=== PATIENT | female | born 1945 | race Caucasian/White ===

== ENCOUNTER 2021-12-12 06:00 | Day surgery (SDC) | payer OTHER ==
[2021-12-07 16:04] VITALS: BMI 27.3
[2021-12-12 08:16] LABS: PH,URINE 6.5 (5.0-8.0); URINE APPEARANCE CLEAR; URINE BILIRUBIN NEGATIVE (NEGATIVE); URINE COLOR YELLOW; URINE GLUCOSE (UA) NEGATIVE (NEGATIVE); URINE KETONE NEGATIVE (NEGATIVE); URINE LEUK ESTERASE NEGATIVE (NEGATIVE); URINE NITRITE NEGATIVE (NEGATIVE); URINE PROTEIN NEGATIVE (NEGATIVE); URINE UROBILINOGEN 0.2 mg/dL (0.2-1.0)
[2021-12-12] MEDS ORDERED: BUPIVACAINE HCL 150 ML ONE (09:32)
[2021-12-12] MEDS ORDERED: LIDOCAINE 1%/EPI 1:100000 (20 ML MULTI DOSE VIAL) ONE (09:32)
[2021-12-12] MEDS ORDERED: MIDAZOLAM HCL 2 MG/2 ML SINGLE DOSE VIAL ONE (09:59)
[2021-12-12] MEDS ORDERED: LIDOCAINE HCL/PF (2%) 40 MG/2 ML VIAL ONE (09:59)
[2021-12-12] MEDS ORDERED: PROPOFOL 20 ML ONE (09:59)
[2021-12-12] MEDS ORDERED: ceFAZolin SODIUM 1 GM VIAL ONE (10:13)
[2021-12-12] MEDS ORDERED: ceFAZolin SODIUM 1 GM VIAL IVPB ONE (10:23)
[2021-12-12] MEDS ORDERED: oxyCODONE HCL 5 MG TABLET PO PRN ×2 (10:57)
[2021-12-12] MEDS ORDERED: ONDANSETRON 4 MG/2 ML VIAL IVPUSH PRN (10:57)
[2021-12-12] MEDS ORDERED: PROMETHAZINE HCL 25 MG/1 ML VIAL IVPUSH PRN (10:57)
[2021-12-12] MEDS ORDERED: LACTATED RINGERS SOLUTION 1,000 ML IV SCH (11:00)
[2021-12-12 12:20] VITALS: RESP 16
[2021-12-12 13:13] VITALS: BP 149/48; PULSE 56; TEMP 97.1
== END 2021-12-12 13:39 | disposition home or self-care (01) ==
LOC: JASU-SURG 06:00
PROVIDERS: ATTEND Orthopaedic Surgery
PROC: 0SBC4ZZ Excision of Right Knee Joint, Percutaneous Endoscopic Approach (ICD-10-PCS; principal; 2021-12-12 10:00)
DX: M23.361 Other meniscus derangements, other lateral meniscus, right knee (principal)
CPT/HCPCS: 81003; 82962; 94760; 97116-GP